=== PATIENT | female | born 1995 | race Caucasian/White ===

== ENCOUNTER 2016-12-27 14:32 | Emergency (ER) | payer OTHER ==
[2016-12-27 16:44] LABS: Bacteria,Urine 1+ /HPF (Negative); Bilirubin,Urine NEG (Negative); Blood,Urine NEG (Negative); Ketones,Urine NEG (Negative); Leukocyte Esterase,Urine NEG (Negative); Mucus,Urine 1+ /HPF; Nitrite,Urine NEG (Negative); Protein,Urine <15 mg/dL mg/dL (Negative); Urobilinogen,Urine < 2.0 mg/dL (<2.0)
[2016-12-27 17:09] LABS: Basophils % (Auto) 0.3 % (0.0-1.8); Eosinophils % (Auto) 0.1 % (0.0-4.3); Hematocrit 32.1 % (30.3-42.9); Hemoglobin 10.8 gm/dl (10.1-14.3); Mean Corpuscular HGB Conc 34 % (30-34); Mean Corpuscular Hemoglobin 30 pg (28-32); Mean Corpuscular Volume 89 fl (79-97); Platelet Count 266 K/mm3 (140-440); Red Blood Count 3.61 M/mm3 (3.65-5.03); White Blood Count 9.7 K/mm3 (4.5-11.0)
[2016-12-27 17:12] LABS: Red Cell Distribution Width 20.8 % (13.2-15.2)
[2016-12-27 17:19] LABS: Blood Urea Nitrogen 9 mg/dL (7-17); Calcium 8.6 mg/dL (8.4-10.2); Carbon Dioxide 21 mmol/L (22-30); Glucose 108 mg/dL (65-100)
[2016-12-27 17:20] LABS: Anion Gap 18 mmol/L; Chloride 102.2 mmol/L (98-107); Potassium 4.3 mmol/L (3.6-5.0); Sodium 137 mmol/L (137-145)
[2016-12-27] MEDS ORDERED: ZOFRAN IV ONE (18:42)
[2016-12-27] MEDS ORDERED: NACL 0.9% 1000 ML 1,000 ML IV ONE (18:42)
--- NOTE | 2016-12-27 18:48 | Emergency Department Report ---
HPI - General Chief Complaint: Syncope Time Seen by Provider: 12/27/16 18:29 - HPI HPI: Room 7 The patient is a 21-year-old female presenting with a chief complaint of syncope. The patient stated she just finished walking "in the hot sun" to a store while she was at the counter she states she felt lightheaded and then "everything went black." The patient's friend states that the patient began to collapse but she caught her and gently guided her backwards onto the floor. There was never any convulsive activity. The patient was unresponsive for 1-2 minutes and then got up patient then had a second syncopal episode lasting approximately 3-5 minutes before she came to. Patient was given a chocolate bar by a bystander however the patient is lactose intolerant and she soon got up to run across the street to go to the bathroom to have a bowel movement. The patient admits to nausea and vomiting since she found out she was . Patient denies symptoms preceding or after event including chest pain, shortness of breath, abdominal pain or vaginal bleeding. When asked how she is feeling currently the patient states no edema is bothering her is she feels "hungry." Location: [see above] Duration: [see above] Quality: Syncope Severity: Moderate Modifying factors: [see above] Context: [see above] Mode of transportation: [not driving] ED Past Medical Hx - Past Medical History Hx Asthma: Yes - Surgical History Past Surgical History?: Yes Additional Surgical History: DNC 05/2016 - Family History Family history: no significant - Social History Smoking Status: Former Smoker Substance Use Type: Marijuana - Medications Home Medications: Home Medications Medication Instructions Recorded Confirmed Last Taken Type No Known Home Medications [No 12/27/16 12/27/16 Unknown History Reported Home Medications] ED Review of Systems ROS: Stated complaint: WEAKNESS,HYPOGLYCEMIA Other details as noted in HPI Comment: All other systems reviewed and negative Constitutional: denies: chills, fever Eyes: denies: eye pain, eye discharge, vision change ENT: denies: ear pain, throat pain Respiratory: denies: cough, shortness of breath, wheezing Cardiovascular: denies: chest pain, palpitations Endocrine: no symptoms reported Gastrointestinal: denies: abdominal pain, nausea, diarrhea Genitourinary: denies: urgency, dysuria, discharge Musculoskeletal: denies: back pain, joint swelling, arthralgia Skin: denies: rash, lesions Neurological: other (syncope, lightheadedness) Psychiatric: denies: anxiety, depression Physical Exam - Physical Exam Vital Signs: Vital Signs 12/27/16 12/27/16 12/27/16 15:36 15:42 15:57 Temperature 98.6 F 98.6 F Pulse Rate 96 H 90 Respiratory 14 16 Rate Blood Pressure 100/68 Blood Pressure 100/68 108/63 [Left] O2 Sat by Pulse 100 85 100 Oximetry 12/27/16 12/27/16 12/27/16 16:01 16:21 16:41 Temperature Pulse Rate 89 88 91 H Respiratory 21 23 14 Rate Blood Pressure 108/63 96/58 98/60 Blood Pressure [Left] O2 Sat by Pulse 100 100 100 Oximetry 12/27/16 12/27/16 12/27/16 17:00 17:17 17:21 Temperature Pulse Rate 84 95 H Respiratory 14 16 24 Rate Blood Pressure 104/58 97/59 Blood Pressure [Left] O2 Sat by Pulse 100 Oximetry 12/27/16 12/27/16 12/27/16 17:41 18:00 18:25 Temperature Pulse Rate 82 84 85 Respiratory 14 13 12 Rate Blood Pressure 107/67 104/65 Blood Pressure 92/52 [Left] O2 Sat by Pulse 100 98 99 Oximetry Physical Exam: GENERAL: The patient is well-developed well-nourished female lying on stretcher not appearing to be in acute distress. [] HEENT: Normocephalic. Atraumatic. Extraocular motions are intact. Patient has moist mucous membranes. NECK: Supple. Trachea midline CHEST/LUNGS: Clear to auscultation. There is no respiratory distress noted. HEART/CARDIOVASCULAR: Regular. There is no tachycardia. There is no gallop rub or murmur. ABDOMEN: Abdomen is soft, nontender. Patient has normal bowel sounds. There is no abdominal distention. SKIN: There is no rash. There is no edema. There is no diaphoresis. NEURO: The patient is awake, alert, and oriented. The patient is cooperative. The patient has no focal neurologic deficits. The patient has normal speech. Cranial nerves II through XII grossly intact, no drift MUSCULOSKELETAL: There is no evidence of acute injury. ED Course Vital Signs 12/27/16 12/27/16 12/27/16 15:36 15:42 15:57 Temperature 98.6 F 98.6 F Pulse Rate 96 H 90 Respiratory 14 16 Rate Blood Pressure 100/68 Blood Pressure 100/68 108/63 [Left] O2 Sat by Pulse 100 85 100 Oximetry 12/27/16 12/27/16 12/27/16 16:01 16:21 16:41 Temperature Pulse Rate 89 88 91 H Respiratory 21 23 14 Rate Blood Pressure 108/63 96/58 98/60 Blood Pressure [Left] O2 Sat by Pulse 100 100 100 Oximetry 12/27/16 12/27/16 12/27/16 17:00 17:17 17:21 Temperature Pulse Rate 84 95 H Respiratory 14 16 24 Rate Blood Pressure 104/58 97/59 Blood Pressure [Left] O2 Sat by Pulse 100 Oximetry 12/27/16 12/27/16 12/27/16 17:41 18:00 18:25 Temperature Pulse Rate 82 84 85 Respiratory 14 13 12 Rate Blood Pressure 107/67 104/65 Blood Pressure 92/52 [Left] O2 Sat by Pulse 100 98 99 Oximetry ED Medical Decision Making - Lab Data Result diagrams: 12/27/16 16:51 12/27/16 16:51 Laboratory Tests 12/27/16 12/27/16 12/27/16 15:48 16:31 16:51 WBC 9.7 RBC 3.61 L Hgb 10.8 Hct 32.1 MCV 89 MCH 30 MCHC 34 RDW 20.8 H Plt Count 266 Lymph % (Auto) 10.5 L Butts % (Auto) 4.7 Eos % (Auto) 0.1 Baso % (Auto) 0.3 Lymph # 1.0 L Butts # 0.5 Eos # 0.0 Baso # 0.0 Seg Neutrophils % 84.4 H Seg Neutrophils # 8.2 H Sodium Potassium Chloride Carbon Dioxide Anion Gap BUN Creatinine Estimated GFR BUN/Creatinine Ratio Glucose POC Glucose 153 H Calcium Urine Color Yellow Urine Turbidity Clear Urine pH 6.0 Ur Specific [place] 1.025 Urine Protein <15 mg/dl Urine Glucose (UA) >=500 Urine Ketones Neg Urine Blood Neg Urine Nitrite Neg Urine Bilirubin Neg Urine Urobilinogen < 2.0 Ur Leukocyte Esterase Neg Urine WBC (Auto) 4.0 Urine RBC (Auto) 2.0 U Epithel Cells (Auto) 6.0 Urine Bacteria (Auto) 1+ Urine Mucus 1+ 12/27/16 12/27/16 16:51 17:42 WBC RBC Hgb Hct MCV MCH MCHC RDW Plt Count Lymph % (Auto) Butts % (Auto) Eos % (Auto) Baso % (Auto) Lymph # Butts # Eos # Baso # Seg Neutrophils % Seg Neutrophils # Sodium 137 Potassium 4.3 Chloride 102.2 Carbon Dioxide 21 L Anion Gap 18 BUN 9 Creatinine 0.6 L Estimated GFR > 60 BUN/Creatinine Ratio 15.00 Glucose 108 H POC Glucose 159 H Calcium 8.6 Urine Color Urine Turbidity Urine pH Ur Specific [place] Urine Protein Urine Glucose (UA) Urine Ketones Urine Blood Urine Nitrite Urine Bilirubin Urine Urobilinogen Ur Leukocyte Esterase Urine WBC (Auto) Urine RBC (Auto) U Epithel Cells (Auto) Urine Bacteria (Auto) Urine Mucus - EKG Data -: EKG Interpreted by Me EKG shows normal: sinus rhythm Rate: normal - EKG Data When compared to previous EKG there are: previous EKG unavailable - Radiology Data Radiology results: report reviewed (pelvic ultrasound), image reviewed (pelvic ultrasound) Pelvic ultrasound (read by radiologist)-single live intrauterine gestation at approximately 10 weeks 1 day heart rate 167 bpm. - Differential Diagnosis dehydration, hyperemesis gravidarum, orthostatic hypotension, syncope Critical care attestation.: If time is entered above; I have spent that time in minutes in the direct care of this critically ill patient, excluding procedure time. ED Disposition Clinical Impression: Syncope, Disposition: DC-07 LEFT AGAINST MED ADVICE Is pt being admited?: No Does the pt Need Aspirin: No Condition: Undetermined Instructions: Syncope (ED) Referrals: PRIMARY CARE, [Primary Care Provider] - 3-5 Days Forms: AMA Form Time of Disposition: 20:33 (patient leaves AMA prior to ultrasound report)
[2016-12-27 20:04] VITALS: BP 101/60
--- NOTE | 2016-12-27 20:51 | Ultrasound Report ---
FINAL REPORT PROCEDURE: US OB \T\lt; = 14 WEEKS FETUS TECHNIQUE: Real-time transabdominal and transvaginal sonography of the uterus, placenta, amniotic fluid, adnexa, and fetus was performed with image documentation. Measurements were obtained to determine age/size. M-mode Doppler was used to document heartbeat. HISTORY: syncope, COMPARISON: No prior studies are available for comparison. FINDINGS: GESTATION: Single CRL: 33 mm, which corresponds to a gestational age of: 10 weeks, 1 days. Yolk Sac: Normal. Embryonic Cardiac Activity: 167 beats per minute Gestational Sac: Normal. Amniotic fluid: Normal. Cervix: Normal. Right Ovary: Normal. Left Ovary: Normal. Estimated delivery date: July 24, 2017 Uterus and adnexa: Normal. IMPRESSION: 1. Single live intrauterine gestation at approximately 10 weeks, 1 days. 2. EDC by US July 24, 2017
--- NOTE | 2016-12-27 20:53 | Ultrasound Report ---
FINAL REPORT PROCEDURE: US OB TRANSVAGINAL TECHNIQUE: Real-time transabdominal and transvaginal sonography of the uterus, placenta, amniotic fluid, adnexa, and fetus was performed with image documentation. Measurements were obtained to determine age/size. M-mode Doppler was used to document heartbeat. HISTORY: syncope, COMPARISON: No prior studies are available for comparison. FINDINGS: GESTATION: Single CRL: 33 mm, which corresponds to a gestational age of: 10 weeks, 1 days. Yolk Sac: Normal. Embryonic Cardiac Activity: 167 beats per minute Gestational Sac: Normal. Amniotic fluid: Normal. Cervix: Normal. Right Ovary: Normal. Left Ovary: Normal. Estimated delivery date: July 24, 2017 Uterus and adnexa: Normal. IMPRESSION: 1. Single live intrauterine gestation at approximately 10 weeks, 1 days. 2. EDC by US July 24, 2017
== END 2016-12-27 20:31 | disposition left against medical advice (07) ==
LOC: ED 14:32
DX: O26.891 Other specified pregnancy related conditions, first trimester (principal); R55 Syncope and collapse; Z3A.10 10 weeks gestation of pregnancy; J45.909 Unspecified asthma, uncomplicated; F12.10 Cannabis abuse, uncomplicated; Z87.891 Personal history of nicotine dependence
CPT/HCPCS: 36415; 76801; 76817; 80048; 81001; 82962; 85025; 93005; 93010; 96361; 96374; 99285; J2405; J7030